=== PATIENT | female | born 1955 | race Caucasian/White ===

== ENCOUNTER 2017-01-29 19:06 | Emergency (ER) | payer MEDICARE ==
[~2017-01-29] VITALS: Ht 165.1 cm; Wt 88.7 kg
[~2017-01-29 19:06] MED LIST: DOXY25TA PO; FAMO10TA10 PO; PREG75CA PO
[2017-01-29 19:16] VITALS: BP 165/80
== END 2017-01-29 20:57 | disposition home or self-care (01) ==
LOC: ED 20:45
DX: S92.515A Nondisplaced fracture of proximal phalanx of left lesser toe(s), initial encounter for closed fracture (principal); X58.XXXA Exposure to other specified factors, initial encounter; Y93.89 Activity, other specified; Y92.89 Other specified places as the place of occurrence of the external cause; Y99.9 Unspecified external cause status
CPT/HCPCS: 99284